=== PATIENT | male | born 1985 | race Caucasian/White ===

== ENCOUNTER 2021-04-26 14:12 | Emergency (ER) | payer OTHER ==
[~2021-04-26] VITALS: Ht 170.2 cm; Wt 79.5 kg
[2021-04-26 14:26] VITALS: BP 132/76
== END 2021-04-26 14:53 | disposition home or self-care (01) ==
LOC: ER 14:14
DX: Z02.89 Encounter for other administrative examinations (principal); S49.92XD Unspecified injury of left shoulder and upper arm, subsequent encounter; W19.XXXD Unspecified fall, subsequent encounter
CPT/HCPCS: 99281